=== PATIENT | male | born 1970 | race Caucasian/White ===

== ENCOUNTER 2017-11-05 07:06 | Outpatient (CLI) | payer BC | END 2017-11-05 07:07 | disposition home or self-care (01) | LOC: BICULT 07:06 | PROVIDERS: ATTEND Urology | DX: N50.89 Other specified disorders of the male genital organs (principal); N43.3 Hydrocele, unspecified | CPT/HCPCS: 36415; 76870; 93976; G0103 ==

== ENCOUNTER 2018-10-25 09:40 | Outpatient (CLI) | payer BC ==
[2018-10-25 10:18] LABS: Bilirubin Negative (Negative); Blood, Urine Negative (Negative); Clarity Clear (Clear); Glucose, Urine (Dipstick) Negative (Negative); Leukocyte Negative (Negative); Nitrite Negative (Negative); Protein, Urine (Dipstick) Negative (Neg-Trace); Urobilinogen 0.2 mg/dL (0.2-1.0)
--- NOTE | 2018-10-25 12:09 | ULT ---
TESTICULAR ULTRASOUND: Date: 10/25/18 HISTORY: Epididymitis with spermatocele. COMPARISON: 09/02/16. TECHNIQUE: Multiplanar James scale and color Doppler images were obtained in a bilateral testicular/scrotal ultra sound. Spectral analysis of the Doppler waveforms of the testicles performed. FINDINGS: The testicles are normal in echogenicity without focal lesions and demonstrate normal symmetric and i nternal flow. There are small bilateral hydroceles, left greater than right. The epididymides are nor mal in appearance and demonstrate symmetric internal flow. IMPRESSION: Small bilateral hydroceles. POS: [facility]
== END 2018-10-25 09:41 | disposition home or self-care (01) ==
LOC: SCSULT 09:40
PROVIDERS: ATTEND Urology
DX: N50.89 Other specified disorders of the male genital organs (principal); N43.40 Spermatocele of epididymis, unspecified; N43.3 Hydrocele, unspecified; Z80.42 Family history of malignant neoplasm of prostate
CPT/HCPCS: 36415; 76870; 81003; 93976; G0103